=== PATIENT | male | born 1990 | race Caucasian/White ===

== ENCOUNTER 2021-01-13 16:59 | Inpatient (IN) | payer OTHER ==
--- NOTE | 2021-01-13 17:15 | PCM.EKG ---
#1 Interpretation Time: 17:14 EKG Interpretation Comments: EKG: NSR, nonspecific ST/T changes, Rate -Mick
[2021-01-13] MEDS ORDERED: Sodium Chloride 0.9% 2.5 ML Syringe FLUSH PRN (18:08)
[2021-01-13] MEDS ORDERED: Sodium Chloride 0.9% 10 ML Syringe FLUSH PRN (18:08)
[2021-01-13] MEDS ORDERED: Aspirin 81 MG Tab.Chew PO ONE (18:08)
[2021-01-13 18:39] LABS: BLOOD UREA NITROGEN,BUN 20 mg/dL (7.0-18.0); CHLORIDE,CL 101 mmol/L (98-107); GLUCOSE RANDOM 110 mg/dL (74-106); LIPASE 31 U/L (73-393); POTASSIUM,K 3.5 mmol/L (3.5-5.1); SODIUM,NA 138 mmol/L (136-148)
--- NOTE | 2021-01-13 19:01 | CR ---
INDICATION: Pain, shortness of breath TECHNIQUE: Chest 1 view. COMPARISON: None available FINDINGS: The heart is normal in size given AP portable technique. The vasculature is within normal limits. The lungs are clear. The bones are grossly unremarkable. IMPRESSION: No acute process. Dictated by Dinah Flor MD @ 01/13/2021 6:59:20 PM (Electronically Signed)
[2021-01-13] MEDS: Morphine 2 MG/ML SYRINGE IVPUSH ONE ×2 (19:13→19:51)
--- NOTE | 2021-01-13 19:40 | PCM.EKG ---
#2 Interpretation EKG Date: 01/13/21 Time: 18:52 Rhythm: NSR Rate (Beats/Min): 75 [place]: Normal P-Wave: Present QRS: Normal ST-T: Normal QT: Normal Comparison: No Change (today) EKG Interpretation Comments: SInus Rhythm
[2021-01-14] MEDS ORDERED: Acetaminophen 325 MG Tab PO PRN (00:15)
[2021-01-14] MEDS ORDERED: Morphine 2 MG/ML SYRINGE IVPUSH PRN (00:16)
--- NOTE | 2021-01-14 00:22 | PCM.HP.2 ---
H&P History of Present Illness - General Date of Service: 01/14/21 Admit Problem/Dx: Admission Diagnosis/Problem Admission Diagnosis/Problem Chest pain - History of Present Illness Initial Comments - Free Text/Narative: 30 yo male who presents with one day history of substernal chest pressure. Patient had COVID last February and had his 2nd Pfizer vaccine three days ago. He had fevers after the 2nd does of Pfizer vaccine. He denies any cough, shortness of breath, or lightheadedness. EKG was normal sinus. Troponin was elevated at 2.6. ER provider reported to me that Dr. Berry was consulted and recommended observing here and repeating troponin in the morning. - Related Data Allergies/Adverse Reactions: Allergies Allergy/AdvReac Type Severity Reaction Status Date / Time Penicillins Allergy Rash Verified 01/13/21 22:40 Home Medications: Home Meds RX: Colchicine 0.6 mg PO BID #60 tablet 01/14/21 [Rx] RX: Ibuprofen 800 mg PO TID #90 tablet 01/14/21 [Rx] Past Medical History - Past Health History Medical/Surgical History: Denies Medical/Surgical History - Infectious Disease History Infectious Disease History: Reports: Novel Coronavirus Social & Family History - Family History Family Medical History: No Pertinent Family History - Tobacco Use Tobacco Use Status *Q: Never Tobacco User Second Hand Smoke Exposure: Yes - Caffeine Use Caffeine Use: Reports: Coffee, Energy Drinks, Soda Other Caffeine Use: coffee and spda once a day. 1 Energy drink every 2-3 days - Alcohol Use Days Per Week of Alcohol Use: 4 Number of Drinks Per Day: 2 Total Drinks Per Week: 8 Date of Last Drink: 01/10/21 - Recreational Drug Use Recreational Drug Use: No H&P Review of Systems - Review of Systems: Review Of Systems: Comprehensive ROS is negative, except as noted in HPI. Exam - Exam Exam: See Below - Vital Signs Vital Signs: Last Vital Signs Temp 36.3 C 01/13/21 22:32 Pulse 79 01/13/21 22:32 Resp 16 01/13/21 22:32 BP 122/82 01/13/21 22:32 Pulse Ox 95 01/13/21 22:32 Weight: 96.57 kg - Exam General: Alert, Oriented HEENT: Mucosa Moist & [place] Neck: Supple Lungs: Clear to Auscultation, Normal Respiratory Effort Cardiovascular: Regular Rate, Regular Rhythm GI/Abdominal Exam: Normal Bowel Sounds, Soft, Non-Tender Skin: Warm, Dry, Intact Neurological: No: Focal Deficit - Patient Data Lab Results Last 24 hrs: Laboratory Results - last 24 hr 01/13/21 01/13/21 01/13/21 Range/Units 17:05 17:05 17:05 WBC 9.90 (4.0-11.0) K/uL RBC 5.02 (4.50-5.90) M/uL Hgb 15.1 (13.0-17.0) g/dL Hct 43.0 (38.0-50.0) % MCV 85.7 (80.0-98.0) fL MCH 30.1 (27.0-32.0) pg MCHC 35.1 (31.0-37.0) g/dL RDW Std Deviation 39.8 (28.0-62.0) fl RDW Coeff of Janiya 13 (11.0-15.0) % Plt Count 302 (150-400) K/uL MPV 10.60 (7.40-12.00) fL Neut % (Auto) 53.4 (48.0-80.0) % Lymph % (Auto) 31.1 (16.0-40.0) % [place] % (Auto) 14.3 (0.0-15.0) % Eos % (Auto) 0.8 (0.0-7.0) % Baso % (Auto) 0.4 (0.0-1.5) % Neut # (Auto) 5.3 (1.4-5.7) K/uL Lymph # (Auto) 3.1 H (0.6-2.4) K/uL [place] # (Auto) 1.4 H (0.0-0.8) K/uL Eos # (Auto) 0.1 (0.0-0.7) K/uL Baso # (Auto) 0.0 (0.0-0.1) K/uL Nucleated RBC % 0.0 /100WBC Nucleated RBCs # 0 K/uL D-Dimer, Quantitative 0.35 (0.0-0.50) mg/L FEU Sodium 138 (136-148) mmol/L Potassium 3.5 (3.5-5.1) mmol/L Chloride 101 (98-107) mmol/L Carbon Dioxide 27.0 (21.0-32.0) mmol/L BUN 20 H (7.0-18.0) mg/dL Creatinine 1.1 (0.8-1.3) mg/dL Est Cr Clr Drug Dosing 94.14 mL/min Estimated GFR (MDRD) > 60.0 ml/min Glucose 110 H (74-106) mg/dL Calcium 8.6 (8.5-10.1) mg/dL Total Bilirubin 0.7 (0.2-1.0) mg/dL AST 35 (15-37) IU/L ALT 59 (14-63) IU/L Alkaline Phosphatase 71 (46-116) U/L Troponin I 2.690 H* (0.000-0.056) ng/mL Total Protein 8.4 H (6.4-8.2) g/dL Albumin 3.8 (3.4-5.0) g/dL Globulin 4.6 H (2.6-4.0) g/dL Albumin/Globulin Ratio 0.8 L (0.9-1.6) Lipase 31 L (73-393) U/L SARS-CoV-2 RNA (KWAKU) (NEGATIVE) 01/13/21 Range/Units 19:25 WBC (4.0-11.0) K/uL RBC (4.50-5.90) M/uL Hgb (13.0-17.0) g/dL Hct (38.0-50.0) % MCV (80.0-98.0) fL MCH (27.0-32.0) pg MCHC (31.0-37.0) g/dL RDW Std Deviation (28.0-62.0) fl RDW Coeff of Janiya (11.0-15.0) % Plt Count (150-400) K/uL MPV (7.40-12.00) fL Neut % (Auto) (48.0-80.0) % Lymph % (Auto) (16.0-40.0) % [place] % (Auto) (0.0-15.0) % Eos % (Auto) (0.0-7.0) % Baso % (Auto) (0.0-1.5) % Neut # (Auto) (1.4-5.7) K/uL Lymph # (Auto) (0.6-2.4) K/uL [place] # (Auto) (0.0-0.8) K/uL Eos # (Auto) (0.0-0.7) K/uL Baso # (Auto) (0.0-0.1) K/uL Nucleated RBC % /100WBC Nucleated RBCs # K/uL D-Dimer, Quantitative (0.0-0.50) mg/L FEU Sodium (136-148) mmol/L Potassium (3.5-5.1) mmol/L Chloride (98-107) mmol/L Carbon Dioxide (21.0-32.0) mmol/L BUN (7.0-18.0) mg/dL Creatinine (0.8-1.3) mg/dL Est Cr Clr Drug Dosing mL/min Estimated GFR (MDRD) ml/min Glucose (74-106) mg/dL Calcium (8.5-10.1) mg/dL Total Bilirubin (0.2-1.0) mg/dL AST (15-37) IU/L ALT (14-63) IU/L Alkaline Phosphatase (46-116) U/L Troponin I (0.000-0.056) ng/mL Total Protein (6.4-8.2) g/dL Albumin (3.4-5.0) g/dL Globulin (2.6-4.0) g/dL Albumin/Globulin Ratio (0.9-1.6) Lipase (73-393) U/L SARS-CoV-2 RNA (KWAKU) NEGATIVE (NEGATIVE) Result Diagrams: 01/14/21 06:21 01/14/21 06:21 Sepsis Event Note - Evaluation Sepsis Screening Result: No Definite Risk - Focused Exam Vital Signs: Vital Signs Temp Pulse Resp BP Pulse Ox 01/13/21 22:32 36.3 C 79 16 122/82 95 01/13/21 21:30 36.3 C 72 18 135/75 97 01/13/21 20:00 70 18 132/96 H 97 01/13/21 18:27 76 17 122/87 98 01/13/21 17:09 36.1 C 87 18 161/104 H 99 Problem List Initiated/Reviewed/Updated: Yes Orders Last 24hrs: Active Orders 24 hr Category Date Time Status Admission Status [Patient Status] [ADT] Stat ADT 01/13/21 21:17 Active Antiembolic Devices [RC] PER UNIT ROUTINE Care 01/14/21 00:16 Ordered Cardiac Monitoring [RC] Q8H Care 01/13/21 18:08 Active EKG Documentation Completion [RC] STAT Care 01/13/21 18:43 Active Oxygen Therapy [RC] PRN Care 01/14/21 00:15 Ordered Up ad Gabriella [RC] ASDIRECTED Care 01/14/21 00:15 Ordered VTE/DVT Education [RC] PER UNIT ROUTINE Care 01/14/21 00:15 Ordered Vital Signs [RC] Q4H Care 01/14/21 00:15 Ordered Regular Diet [DIET] Diet 01/14/21 Breakfast Ordered BASIC METABOLIC PANEL,BMP [CHEM] AM Lab 01/14/21 05:11 Ordered CBC WITH AUTO DIFF [HEME] AM Lab 01/14/21 05:11 Ordered TROPONIN I [CHEM] AM Lab 01/14/21 05:11 Ordered Acetaminophen [TylenoL] Med 01/14/21 00:15 Ordered 650 mg PO Q4H PRN Sodium Chloride 0.9% [Saline Flush] Med 01/13/21 18:08 Active 10 ml FLUSH ASDIRECTED PRN Sodium Chloride 0.9% [Saline Flush] Med 01/13/21 18:08 Active 2.5 ml FLUSH ASDIRECTED PRN Saline Lock Insert [OM.PC] Stat Oth 01/13/21 18:08 Ordered Sequential Compression Device [OM.PC] Per Unit Routine Oth 01/14/21 00:15 Ordered Resuscitation Status Routine Resus Stat 01/14/21 00:15 Ordered Medication Orders Sodium Chloride (Sodium Chloride 0.9% 10 Ml Syringe) 10 ml FLUSH ASDIRECTED PRN PRN Reason: Keep Vein Open Last Admin: 01/13/21 18:16 Dose: 10 ml Documented by: ISIDRO Sodium Chloride (Sodium Chloride 0.9% 2.5 Ml Syringe) 2.5 ml FLUSH ASDIRECTED PRN PRN Reason: Keep Vein Open Last Admin: 01/13/21 18:16 Dose: 2.5 ml Documented by: ISIDRO Assessment/Plan Comment:: 30 yo male admitted for acute myocarditis. We will monitor on telemetry and repeat troponin in the morning.
[2021-01-14 07:46] LABS: BLOOD UREA NITROGEN,BUN 19 mg/dL (7.0-18.0); CARBON DIOXIDE,CO2 27.6 mmol/L (21.0-32.0); CHLORIDE,CL 104 mmol/L (98-107); GLUCOSE RANDOM 119 mg/dL (74-106); SODIUM,NA 142 mmol/L (136-148)
--- NOTE | 2021-01-14 12:19 | EDM.PDOC ---
ED HPI GENERAL MEDICAL PROBLEM - General Chief Complaint: Chest Pain Stated Complaint: CHEST PRESSURE AND PAIN Time Seen by Provider: 01/13/21 17:51 Source of Information: Reports: Patient History Limitations: Reports: No Limitations - History of Present Illness INITIAL COMMENTS - FREE TEXT/NARRATIVE: HISTORY AND PHYSICAL: History of present illness: Patient is an otherwise healthy 30-year-old male who presents emergency room today with concern of chest pain that is been ongoing for the past 2 days. Patient states that he did receive the COVID-19 vaccine 2 days prior to that and states that the next day, he felt tired and rundown, states he had low-grade fever and body aches that day but states that that has gone away. Patient states that since then, he has continued to have a dull chest pain. Patient states that he was taking Tylenol which does temporarily relieve the chest pain but then does return. Patient states he was concerned that the Covid vaccine had caused his symptoms so came here to the emergency room for further evaluation. Denies any other resuscitative symptoms. Denies any family history of coronary artery disease or significant heart history. Patient denies fever, chills, shortness of breath, or cough. Denies headache, neck stiff ness, change in vision, syncope, or near syncope. Denies nausea, vomiting, abdominal pain, diarrhea, constipation, or dysuria. Has not noted any blood in urine or stool. Patient has been eating and drinking appropriately. Review of systems: As per history of present illness and below otherwise all systems reviewed and negative. Past medical history: As per history of present illness and as reviewed below otherwise noncontributory. Surgical history: As per history of present illness and as reviewed below otherwise noncontributory. Social history: See social history for further information Family history: As per history of present illness and as reviewed below otherwise noncontributory. Physical exam: General: Patient is alert, oriented, and in no acute distress. Patient sitting comfortably on exam table. Vitals stable and reviewed by me. HEENT: Atraumatic, normocephalic, pupils equal and reactive bilaterally, negative for conjunctival pallor or scleral icterus, mucous membranes moist, throat clear, neck supple, nontender, trachea midline. No drooling or trismus noted. No meningeal signs. No hot potato voice noted. Lungs: Clear to auscultation, breath sounds equal bilaterally, chest nontender. Heart: S1S2, regular rate and rhythm without overt murmur Abdomen: Soft, nondistended, nontender. Negative for masses or hepatosplenomegaly. Negative for costovertebral tenderness. Pelvis: Stable nontender. Genitourinary: Deferred. Rectal: Deferred. Skin: Intact, warm, dry. No lesions or rashes noted. Extremities: Atraumatic, negative for cords or calf pain. Neurovascular unremarkable. Neuro: Awake, alert, oriented. Cranial nerves II through XII unremarkable. Cerebellum unremarkable. Motor and sensory unremarkable throughout. Exam nonfocal. Medical Decision Making: Patient is an otherwise healthy 30-year-old male who presents emergency room today with concern of chest pain over the past 2 days following a COVID-19 second vaccination of Pfizer. On arrival to the ED, patient is vitally stable and rather well-appearing on exam. Exam is otherwise unremarkable. Will obtain cardiac evaluation, and reassess patient. See Dr. Muller's dictation for specific EKG interpretation. However, normal sinus rhythm without STEMI. Mild derangements of CBC and CMP are unremarkable. However, troponin is significantly elevated at 2.690. Will provide a dose of aspirin at this time. Repeat EKG shows no acute ST changes and remains the same from prior. See Dr. Muller's read dictation for specific EKG interpretation. I did call and speak to the cable worker helper on-call for [facility], Dr. Hu, and thoroughly discussed patient's case. Dr. Hu does not want to treat patient as an NSTEMI and does feel this is related directly to the COVID-19 vaccination. He specifically does not want a heparin drip or bolus started. He would like patient to be admitted to our hospital overnight, not repeat his troponin until in the morning, and get an echo while in the hospital. He states that if the troponin were to worsen in the morning, to recall him/cardiology professional nursing tutor at [place], and we discussed patient's course. He states that if the troponin is improving, and the echo remains otherwise unremarkable, to follow-up outpatient with cardiology and can go home. I did call and speak to the hospitalist on-call, Dr. Armijo, and thoroughly discussed patient's case. Will admit to observation to Dr. Armijo on telemetry. Voices understanding and is agreeable to plan of care. Denies any further questions or concerns at this time. Diagnostics: EKG x2, CBC, CMP, chest x-ray, troponin, D-dimer, COVID-19 Therapeutics: Aspirin, morphine Impression: Chest pain with elevated troponin Recent COVID-19 vaccination Plan: Admission for observation of Dr. Armijo on telemetry Definitive disposition and diagnosis as appropriate pending reevaluation and review of above. - Related Data Allergies Allergy/AdvReac Type Severity Reaction Status Date / Time Penicillins Allergy Rash Verified 01/13/21 22:40 Home Meds: Home Meds . [No Known Home Meds] 01/13/21 [History] Past Medical History - Past Health History Medical/Surgical History: Denies Medical/Surgical History - Infectious Disease History Infectious Disease History: Reports: Novel Coronavirus Social & Family History - Family History Family Medical History: No Pertinent Family History - Tobacco Use Tobacco Use Status *Q: Never Tobacco User Second Hand Smoke Exposure: Yes - Caffeine Use Caffeine Use: Reports: Coffee, Energy Drinks, Soda Other Caffeine Use: coffee and spda once a day. 1 Energy drink every 2-3 days - Alcohol Use Days Per Week of Alcohol Use: 4 Number of Drinks Per Day: 2 Total Drinks Per Week: 8 Date of Last Drink: 01/10/21 - Recreational Drug Use Recreational Drug Use: No ED ROS GENERAL - Review of Systems Review Of Systems: Comprehensive ROS is negative, except as noted in HPI. ED EXAM, GENERAL - Physical Exam Exam: See Below (see dictation) GI/Abdominal: Normal Bowel Sounds, Soft, Non-Tender Course - Vital Signs Last Recorded V/S: Last Vital Signs Temp 97.3 F 01/14/21 08:00 Pulse 80 01/14/21 08:00 Resp 16 01/14/21 08:00 BP 119/76 01/14/21 08:00 Pulse Ox 95 01/14/21 08:00 - Orders/Labs/Meds Orders: Active Orders 24 hr Category Date Time Status Cardiac Monitoring [RC] Q8H Care 01/13/21 18:08 Active Sodium Chloride 0.9% [Saline Flush] Med 01/13/21 18:08 Active 10 ml FLUSH ASDIRECTED PRN Sodium Chloride 0.9% [Saline Flush] Med 01/13/21 18:08 Active 2.5 ml FLUSH ASDIRECTED PRN Saline Lock Insert [OM.PC] Stat Oth 01/13/21 18:08 Ordered Medication Orders Acetaminophen (Acetaminophen 325 Mg Tab) 650 mg PO Q4H PRN PRN Reason: Pain (Mild 1-3)/fever Morphine Sulfate (Morphine 2 Mg/Ml Syringe) 2 mg IVPUSH Q3H PRN PRN Reason: Pain Sodium Chloride (Sodium Chloride 0.9% 10 Ml Syringe) 10 ml FLUSH ASDIRECTED PRN PRN Reason: Keep Vein Open Last Admin: 01/13/21 18:16 Dose: 10 ml Documented by: ISIDRO Sodium Chloride (Sodium Chloride 0.9% 2.5 Ml Syringe) 2.5 ml FLUSH ASDIRECTED PRN PRN Reason: Keep Vein Open Last Admin: 01/13/21 18:16 Dose: 2.5 ml Documented by: ISIDRO Labs: Laboratory Tests 01/13/21 01/13/21 01/13/21 Range/Units 17:05 17:05 17:05 WBC 9.90 (4.0-11.0) K/uL RBC 5.02 (4.50-5.90) M/uL Hgb 15.1 (13.0-17.0) g/dL Hct 43.0 (38.0-50.0) % MCV 85.7 (80.0-98.0) fL MCH 30.1 (27.0-32.0) pg MCHC 35.1 (31.0-37.0) g/dL RDW Std Deviation 39.8 (28.0-62.0) fl RDW Coeff of Janiya 13 (11.0-15.0) % Plt Count 302 (150-400) K/uL MPV 10.60 (7.40-12.00) fL Neut % (Auto) 53.4 (48.0-80.0) % Lymph % (Auto) 31.1 (16.0-40.0) % [place] % (Auto) 14.3 (0.0-15.0) % Eos % (Auto) 0.8 (0.0-7.0) % Baso % (Auto) 0.4 (0.0-1.5) % Neut # (Auto) 5.3 (1.4-5.7) K/uL Lymph # (Auto) 3.1 H (0.6-2.4) K/uL [place] # (Auto) 1.4 H (0.0-0.8) K/uL Eos # (Auto) 0.1 (0.0-0.7) K/uL Baso # (Auto) 0.0 (0.0-0.1) K/uL Nucleated RBC % 0.0 /100WBC Nucleated RBCs # 0 K/uL D-Dimer, Quantitative 0.35 (0.0-0.50) mg/L FEU Sodium 138 (136-148) mmol/L Potassium 3.5 (3.5-5.1) mmol/L Chloride 101 (98-107) mmol/L Carbon Dioxide 27.0 (21.0-32.0) mmol/L BUN 20 H (7.0-18.0) mg/dL Creatinine 1.1 (0.8-1.3) mg/dL Est Cr Clr Drug Dosing 94.14 mL/min Estimated GFR (MDRD) > 60.0 ml/min Glucose 110 H (74-106) mg/dL Calcium 8.6 (8.5-10.1) mg/dL Total Bilirubin 0.7 (0.2-1.0) mg/dL AST 35 (15-37) IU/L ALT 59 (14-63) IU/L Alkaline Phosphatase 71 (46-116) U/L Troponin I 2.690 H* (0.000-0.056) ng/mL Total Protein 8.4 H (6.4-8.2) g/dL Albumin 3.8 (3.4-5.0) g/dL Globulin 4.6 H (2.6-4.0) g/dL Albumin/Globulin Ratio 0.8 L (0.9-1.6) Lipase 31 L (73-393) U/L SARS-CoV-2 RNA ([facility]U) (NEGATIVE) 01/13/21 Range/Units 19:25 WBC (4.0-11.0) K/uL RBC (4.50-5.90) M/uL Hgb (13.0-17.0) g/dL Hct (38.0-50.0) % MCV (80.0-98.0) fL MCH (27.0-32.0) pg MCHC (31.0-37.0) g/dL RDW Std Deviation (28.0-62.0) fl RDW Coeff of Janiya (11.0-15.0) % Plt Count (150-400) K/uL MPV (7.40-12.00) fL Neut % (Auto) (48.0-80.0) % Lymph % (Auto) (16.0-40.0) % [place] % (Auto) (0.0-15.0) % Eos % (Auto) (0.0-7.0) % Baso % (Auto) (0.0-1.5) % Neut # (Auto) (1.4-5.7) K/uL Lymph # (Auto) (0.6-2.4) K/uL [place] # (Auto) (0.0-0.8) K/uL Eos # (Auto) (0.0-0.7) K/uL Baso # (Auto) (0.0-0.1) K/uL Nucleated RBC % /100WBC Nucleated RBCs # K/uL D-Dimer, Quantitative (0.0-0.50) mg/L FEU Sodium (136-148) mmol/L Potassium (3.5-5.1) mmol/L Chloride (98-107) mmol/L Carbon Dioxide (21.0-32.0) mmol/L BUN (7.0-18.0) mg/dL Creatinine (0.8-1.3) mg/dL Est Cr Clr Drug Dosing mL/min Estimated GFR (MDRD) ml/min Glucose (74-106) mg/dL Calcium (8.5-10.1) mg/dL Total Bilirubin (0.2-1.0) mg/dL AST (15-37) IU/L ALT (14-63) IU/L Alkaline Phosphatase (46-116) U/L Troponin I (0.000-0.056) ng/mL Total Protein (6.4-8.2) g/dL Albumin (3.4-5.0) g/dL Globulin (2.6-4.0) g/dL Albumin/Globulin Ratio (0.9-1.6) Lipase (73-393) U/L SARS-CoV-2 RNA ([facility]) NEGATIVE (NEGATIVE) Meds: Medications Generic Name Dose Route Start Last Admin Trade Name Cliffordq PRN Reason Stop Dose Admin Acetaminophen 650 mg 01/14/21 00:15 Acetaminophen 325 Mg Tab PO Q4H PRN Pain (Mild 1-3)/fever Morphine Sulfate 2 mg 01/14/21 00:16 Morphine 2 Mg/Ml Syringe IVPUSH Q3H PRN Pain Sodium Chloride 10 ml 01/13/21 18:08 01/13/21 18:16 Sodium Chloride 0.9% 10 Ml Syringe FLUSH 10 ml ASDIRECTED PRN Administration Keep Vein Open Sodium Chloride 2.5 ml 01/13/21 18:08 01/13/21 18:16 Sodium Chloride 0.9% 2.5 Ml Syringe FLUSH 2.5 ml ASDIRECTED PRN Administration Keep Vein Open Discontinued Medications Generic Name Dose Route Start Last Admin Trade Name Cliffordq PRN Reason Stop Dose Admin Aspirin 324 mg 01/13/21 18:08 01/13/21 18:15 Aspirin 81 Mg Tab.Chew PO 01/13/21 18:09 324 mg ONETIME ONE Administration Morphine Sulfate 2 mg 01/13/21 18:56 01/13/21 19:51 Morphine 2 Mg/Ml Syringe IVPUSH 01/13/21 18:57 2 mg ONETIME ONE Administration Departure - Departure Time of Disposition: 12:18 Disposition: Admitted As Inpatient 65 Clinical Impression: Chest pain, Elevated troponin - Discharge Information Sepsis Event Note (ED) - Evaluation Sepsis Screening Result: No Definite Risk - My Orders Last 24 Hours: My Active Orders 01/13/21 18:08 Cardiac Monitoring [RC] Q8H Sodium Chloride 0.9% [Saline Flush] 10 ml FLUSH ASDIRECTED PRN Sodium Chloride 0.9% [Saline Flush] 2.5 ml FLUSH ASDIRECTED PRN Saline Lock Insert [OM.PC] Stat - Assessment/Plan Last 24 Hours: My Active Orders 01/13/21 18:08 Cardiac Monitoring [RC] Q8H Sodium Chloride 0.9% [Saline Flush] 10 ml FLUSH ASDIRECTED PRN Sodium Chloride 0.9% [Saline Flush] 2.5 ml FLUSH ASDIRECTED PRN Saline Lock Insert [OM.PC] Stat
--- NOTE | 2021-01-14 16:43 | PCM.DCSUM1 ---
Discharge Summary - Discharge Data Discharge Date: 01/14/21 Discharge Disposition: Home, Self-Care 01 Condition: Stable - Referral to Home Health Primary Care Physician: PCP None - Patient Summary/Data Hospital Course: 30 yo male who presents with one day history of substernal chest pressure. Patient had COVID last February and had his 2nd Pfizer vaccine three days ago. He had fevers after the 2nd does of Pfizer vaccine. He denies any cough, shortness of breath, or lightheadedness. EKG was normal sinus. Troponin was elevated at 2.6. Patient was monitored overnight with no events. Repeat troponin was 2.2. Echocardiogram was unremarkable. Dr. Tan was consulted and recommended Ibuprofen and Colchicine. Patient was discharged home to have to have follow up with Dr. Tan. - Patient Instructions Diet: Usual Diet as Tolerated, Regular Diet as Tolerated Activity: No Strenuous Activities - Discharge Plan Prescriptions/Med Rec: Colchicine 0.6 mg PO BID #60 tablet Ibuprofen 800 mg PO TID #90 tablet Home Medications: Home Meds Colchicine 0.6 mg PO BID #60 tablet 01/14/21 [Rx] Ibuprofen 800 mg PO TID #90 tablet 01/14/21 [Rx] Patient Handouts: Nonspecific Chest Pain, Adult, [id number] Referrals: Caprice Brock MD [Physician] - 02/13/21 8:30 am - Discharge Summary/Plan Comment DC Time >30 min.: No Total # of Minutes for Discharge Time: 20 - Patient Data Vitals - Most Recent: Last Vital Signs Temp 36.1 C 01/14/21 12:00 Pulse 84 01/14/21 12:00 Resp 16 01/14/21 12:00 BP 153/67 H 01/14/21 12:00 Pulse Ox 96 01/14/21 12:00 Weight - Most Recent: 96.57 kg I&O - Last 24 hours: Intake & Output 01/14/21 01/14/21 01/14/21 06:59 14:59 22:59 Intake Total 0 Balance 0 Lab Results - Last 24 hrs: Laboratory Results - last 24 hr 01/13/21 01/13/21 01/13/21 Range/Units 17:05 17:05 17:05 WBC 9.90 (4.0-11.0) K/uL RBC 5.02 (4.50-5.90) M/uL Hgb 15.1 (13.0-17.0) g/dL Hct 43.0 (38.0-50.0) % MCV 85.7 (80.0-98.0) fL MCH 30.1 (27.0-32.0) pg MCHC 35.1 (31.0-37.0) g/dL RDW Std Deviation 39.8 (28.0-62.0) fl RDW Coeff of Janiya 13 (11.0-15.0) % Plt Count 302 (150-400) K/uL MPV 10.60 (7.40-12.00) fL Neut % (Auto) 53.4 (48.0-80.0) % Lymph % (Auto) 31.1 (16.0-40.0) % [place] % (Auto) 14.3 (0.0-15.0) % Eos % (Auto) 0.8 (0.0-7.0) % Baso % (Auto) 0.4 (0.0-1.5) % Neut # (Auto) 5.3 (1.4-5.7) K/uL Lymph # (Auto) 3.1 H (0.6-2.4) K/uL [place] # (Auto) 1.4 H (0.0-0.8) K/uL Eos # (Auto) 0.1 (0.0-0.7) K/uL Baso # (Auto) 0.0 (0.0-0.1) K/uL Nucleated RBC % 0.0 /100WBC Nucleated RBCs # 0 K/uL ESR (0-14) mm/hr D-Dimer, Quantitative 0.35 (0.0-0.50) mg/L FEU Sodium 138 (136-148) mmol/L Potassium 3.5 (3.5-5.1) mmol/L Chloride 101 (98-107) mmol/L Carbon Dioxide 27.0 (21.0-32.0) mmol/L BUN 20 H (7.0-18.0) mg/dL Creatinine 1.1 (0.8-1.3) mg/dL Est Cr Clr Drug Dosing 94.14 mL/min Estimated GFR (MDRD) > 60.0 ml/min Glucose 110 H (74-106) mg/dL Calcium 8.6 (8.5-10.1) mg/dL Total Bilirubin 0.7 (0.2-1.0) mg/dL AST 35 (15-37) IU/L ALT 59 (14-63) IU/L Alkaline Phosphatase 71 (46-116) U/L Troponin I 2.690 H* (0.000-0.056) ng/mL C-Reactive Protein (0.00-0.90) mg/dL Total Protein 8.4 H (6.4-8.2) g/dL Albumin 3.8 (3.4-5.0) g/dL Globulin 4.6 H (2.6-4.0) g/dL Albumin/Globulin Ratio 0.8 L (0.9-1.6) Lipase 31 L (73-393) U/L SARS-CoV-2 RNA ([facility]) (NEGATIVE) 01/13/21 01/14/21 01/14/21 Range/Units 19:25 06:21 06:21 WBC 7.25 (4.0-11.0) K/uL RBC 4.86 (4.50-5.90) M/uL Hgb 14.3 (13.0-17.0) g/dL Hct 42.0 (38.0-50.0) % MCV 86.4 (80.0-98.0) fL MCH 29.4 (27.0-32.0) pg MCHC 34.0 (31.0-37.0) g/dL RDW Std Deviation 40.2 (28.0-62.0) fl RDW Coeff of Janiya 13 (11.0-15.0) % Plt Count 282 (150-400) K/uL MPV 11.20 (7.40-12.00) fL Neut % (Auto) 52.3 (48.0-80.0) % Lymph % (Auto) 33.1 (16.0-40.0) % [place] % (Auto) 12.1 (0.0-15.0) % Eos % (Auto) 2.1 (0.0-7.0) % Baso % (Auto) 0.4 (0.0-1.5) % Neut # (Auto) 3.8 (1.4-5.7) K/uL Lymph # (Auto) 2.4 (0.6-2.4) K/uL [place] # (Auto) 0.9 H (0.0-0.8) K/uL Eos # (Auto) 0.2 (0.0-0.7) K/uL Baso # (Auto) 0.0 (0.0-0.1) K/uL Nucleated RBC % 0.0 /100WBC Nucleated RBCs # 0 K/uL ESR (0-14) mm/hr D-Dimer, Quantitative (0.0-0.50) mg/L FEU Sodium 142 (136-148) mmol/L Potassium 4.0 (3.5-5.1) mmol/L Chloride 104 (98-107) mmol/L Carbon Dioxide 27.6 (21.0-32.0) mmol/L BUN 19 H (7.0-18.0) mg/dL Creatinine 1.0 (0.8-1.3) mg/dL Est Cr Clr Drug Dosing 103.55 mL/min Estimated GFR (MDRD) > 60.0 ml/min Glucose 119 H (74-106) mg/dL Calcium 8.7 (8.5-10.1) mg/dL Total Bilirubin (0.2-1.0) mg/dL AST (15-37) IU/L ALT (14-63) IU/L Alkaline Phosphatase (46-116) U/L Troponin I 2.228 H* (0.000-0.056) ng/mL C-Reactive Protein (0.00-0.90) mg/dL Total Protein (6.4-8.2) g/dL Albumin (3.4-5.0) g/dL Globulin (2.6-4.0) g/dL Albumin/Globulin Ratio (0.9-1.6) Lipase (73-393) U/L SARS-CoV-2 RNA ([facility]) NEGATIVE (NEGATIVE) 01/14/21 01/14/21 Range/Units 06:21 06:21 WBC (4.0-11.0) K/uL RBC (4.50-5.90) M/uL Hgb (13.0-17.0) g/dL Hct (38.0-50.0) % MCV (80.0-98.0) fL MCH (27.0-32.0) pg MCHC (31.0-37.0) g/dL RDW Std Deviation (28.0-62.0) fl RDW Coeff of Janiya (11.0-15.0) % Plt Count (150-400) K/uL MPV (7.40-12.00) fL Neut % (Auto) (48.0-80.0) % Lymph % (Auto) (16.0-40.0) % [place] % (Auto) (0.0-15.0) % Eos % (Auto) (0.0-7.0) % Baso % (Auto) (0.0-1.5) % Neut # (Auto) (1.4-5.7) K/uL Lymph # (Auto) (0.6-2.4) K/uL [place] # (Auto) (0.0-0.8) K/uL Eos # (Auto) (0.0-0.7) K/uL Baso # (Auto) (0.0-0.1) K/uL Nucleated RBC % /100WBC Nucleated RBCs # K/uL ESR 14 (0-14) mm/hr D-Dimer, Quantitative (0.0-0.50) mg/L FEU Sodium (136-148) mmol/L Potassium (3.5-5.1) mmol/L Chloride (98-107) mmol/L Carbon Dioxide (21.0-32.0) mmol/L BUN (7.0-18.0) mg/dL Creatinine (0.8-1.3) mg/dL Est Cr Clr Drug Dosing mL/min Estimated GFR (MDRD) ml/min Glucose (74-106) mg/dL Calcium (8.5-10.1) mg/dL Total Bilirubin (0.2-1.0) mg/dL AST (15-37) IU/L ALT (14-63) IU/L Alkaline Phosphatase (46-116) U/L Troponin I (0.000-0.056) ng/mL C-Reactive Protein 1.50 H (0.00-0.90) mg/dL Total Protein (6.4-8.2) g/dL Albumin (3.4-5.0) g/dL Globulin (2.6-4.0) g/dL Albumin/Globulin Ratio (0.9-1.6) Lipase (73-393) U/L SARS-CoV-2 RNA ([facility]) (NEGATIVE) Med Orders - Current: Current Medications Acetaminophen (Acetaminophen 325 Mg Tab) 650 mg PO Q4H PRN PRN Reason: Pain (Mild 1-3)/fever Morphine Sulfate (Morphine 2 Mg/Ml Syringe) 2 mg IVPUSH Q3H PRN PRN Reason: Pain Sodium Chloride (Sodium Chloride 0.9% 10 Ml Syringe) 10 ml FLUSH ASDIRECTED PRN PRN Reason: Keep Vein Open Last Admin: 01/13/21 18:16 Dose: 10 ml Documented by: Sodium Chloride (Sodium Chloride 0.9% 2.5 Ml Syringe) 2.5 ml FLUSH ASDIRECTED PRN PRN Reason: Keep Vein Open Last Admin: 01/13/21 18:16 Dose: 2.5 ml Documented by: Discontinued Medications Aspirin (Aspirin 81 Mg Tab.Chew) 324 mg PO ONETIME ONE Stop: 01/13/21 18:09 Last Admin: 01/13/21 18:15 Dose: 324 mg Documented by: Morphine Sulfate (Morphine 2 Mg/Ml Syringe) 2 mg IVPUSH ONETIME ONE Stop: 01/13/21 18:57 Last Admin: 01/13/21 19:51 Dose: 2 mg Documented by:
--- NOTE | 2021-01-15 09:12 | PCM.SN.2 ---
- Free Text/Narrative Note: #[id number]
--- NOTE | 2021-01-15 13:47 | CONS ---
DATE OF CONSULTATION: 01/14/2021 DATE OF : 1990 PRIMARY CARE PHYSICIAN: None PCP REASON FOR CONSULTATION: Elevation of troponin. HISTORY OF PRESENT ILLNESS: This is a 30-year-old male who has no prior cardiac history and he came into the hospital due to the chest pain. He mentioned on December 20 he got the first shot of the Pfizer vaccine. He was doing well. He may have slight fever, soreness in his arm, and it only lasted for 24 hours. On TuesdayJanuary 10, he got the second shot of Pfizer COVID vaccine, and 2 days after, he started having chest pain he described as a pressure on the center of the chest radiating to both of his arm pick back to his ear. He rated 6/10 pain scale with continuous pain. Seems that if he takes a deep breath the chest pressure seems to be worse. This only last for 24 hours and then he came to the emergency room. He was also checked with a troponin which was positive. The initial troponin is 2.6, but it has come down to 2.2. EKG was unremarkable. I did not appreciate any ST abnormality or Q-wave. Otherwise, he denies any fever, shortness of breath, leg swelling, orthopnea, PND. REVIEW OF SYSTEMS: He denies any other symptoms except indicated in HPI. SOCIAL HISTORY: Denies smoking. He drinks occasionally. Drugs, he denies any drug use. He drinks some coffee. FAMILY HISTORY: No cardiac history in his family. MEDICATION: No medication that he uses at home. PHYSICAL EXAMINATION: VITAL SIGNS: Initial blood pressure 161/104, now is coming down to 112/71; heart rate initially was 87, now to 70 to 80; temperature has no fever, 96.9; O2 saturation is 96% on room air; respirations 12. HEENT: Not pale. No jaundice. No JVD. HEART: Normal S1, S2. No murmur. LUNGS: Clear. ABDOMEN: Soft, nontender. Bowel sounds are present. No hepatosplenomegaly. EXTREMITIES: Legs, no edema. INVESTIGATION: EKG 01/13/2021, sinus rhythm, heart rate of 75, OH 136, QRS 92, QTc 396. No ST changes or Q-waves. Echocardiogram 01/14/2021, LVEF 60% to 65%. Trace MR. Trace TR. RVSP 24. CBC showed WBC 9, hematocrit of 43, hemoglobin of 15, platelet is 302. D-dimer is 0.35. Troponin was 0.6 and coming down to 2.2. Sodium 138, potassium 3.5, chloride 101, bicarb 27, BUN 20, creatinine 1.1. Lipase is 31. ASSESSMENT AND PLAN: This is a 30-year-old male who has no prior cardiac history, presented to the hospital with chest pain, elevation of troponin after receiving his second dose of COVID vaccine. 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 I am not certain it would be related to Pfizer vaccine itself, but it could possibly be the case, even though the incidence of the COVID vaccine and mRNA vaccine-related myopericarditis is around 4.8 cases per 1 million. Recommended to start NSAID as well as colchicine for 3 months. Recommended to check CRP ESR as well. We will arrange for cardiac MRI as an outpatient. He will be seen in the clinic. MAXWELL PACK /[id number]
--- NOTE | 2021-01-21 14:51 | ECHO ---
EXAM DATE: 01/13/21 PATIENT'S AGE: 30 The ECHO report has been scanned into [email or web address] and can be seen in this patient's EMR (Electronic Medical Record) under the REPORTS section. The report has also been scanned into PACS. JOIE
== END 2021-01-14 17:44 | disposition home or self-care (01) | DRG 316 ==
LOC: MW.ED 16:59 → OBSVTOIN 21:17 → MW.MS 21:17
PROVIDERS: ADMIT Internal Medicine; ATTEND Internal Medicine
DX: I40.9 Acute myocarditis, unspecified (principal); Z86.16 Personal history of COVID-19; Z20.822 Contact with and (suspected) exposure to COVID-19
CPT/HCPCS: 36415; 71045; 71045-26; 80048; 80053; 83690; 84484; 85025; 85379; 85652; 86140; 93005; 93306; 96374; 99285-25; A9270-GY; J2270; U0002